=== PATIENT | male | born 1960 | race Caucasian/White ===

== ENCOUNTER 2017-06-14 08:17 | Emergency (ER) | payer BC ==
[~2017-06-14] VITALS: Ht 172.7 cm; Wt 136.1 kg
--- OUTSIDE RECORDS SUMMARY | ~2017-06-14 | XMS | Clinical Summary ---
Demographics + + + | Address | [address] | | | [place] [address] | + + + | Home Phone | | + + + | Preferred Language | Unknown | + + + | Marital Status | Unknown | + + + | Jehovah'S Witness Affiliation | Unknown | + + + | Race | Unknown | + + + | Ethnic Group | Unknown | + + + Author + + + | Author | [facility] | + + + | Organization | [facility] | + + + | Address | Unknown | + + + | Phone | Unavailable | + + + Support + + +---------+ + | Name | Relationship | Address | Phone | + + +---------+ + | Sonali Sweet | ECON | Unknown | | + + +---------+ + Care Team Providers + +------+ + | Care Air Compressor Engineer Name | Role | Phone | + +------+ + | Joy Saunders PA-C | PP | | + +------+ + Allergies No Known Allergies Current Medications + + +--------+---------+------+------+-------+ | Prescription | Sig. | Disp. | Refills | Star | End | Statu | | | | | | t | Date | s | | | | | | Date | | | + + +--------+---------+------+------+-------+ | aspirin 81 MG | Take 81 mg by mouth | | | | | Activ | | tablet | daily. | | | | | e | + + +--------+---------+------+------+-------+ | | Take 1 tablet by | | | | | Activ | | olmesartan-hydrochlo | mouth daily. | | | | | e | | rothiazide (BENICAR | | | | | | | | HCT) 40-25 MG per | | | | | | | | tablet | | | | | | | + + +--------+---------+------+------+-------+ | ibuprofen (ADVIL) | Take 200 mg by mouth | | | | | Activ | | 200 MG tablet | every 6 (six) hours | | | | | e | | | as needed for Pain | | | | | | | | (Take 4 tablets by | | | | | | | | mouth). | | | | | | + + +--------+---------+------+------+-------+ | ferrous sulfate, | Take 65 mg of iron | | | | | Activ | | 65 FE, 324 (65 FE) | by mouth daily with | | | | | e | | MG EC tablet | breakfast. | | | | | | + + +--------+---------+------+------+-------+ | furosemide (LASIX) | Take 40 mg by mouth | | | | | Activ | | 40 MG tablet | daily. | | | | | e | + + +--------+---------+------+------+-------+ | fish oil omega-3 | Take 1 g by mouth | | | | | Activ | | fatty acids 1000 MG | daily. | | | | | e | | capsule | | | | | | | + + +--------+---------+------+------+-------+ | Multiple | Take 1 tablet by | | | | | Activ | | Vitamins-Minerals | mouth daily. | | | | | e | | (MULTIVITAMIN WITH | | | | | | | | MINERALS) tablet | | | | | | | + + +--------+---------+------+------+-------+ | sodium | Apply 473 mLs | 1 | 0 | 03/1 | | Activ | | hypochlorite | topically continuous | Bottle | | / | | e | | (DAKINS, 02/23 | prn. | | | 16 | | | | STRENGTH,) 0.125 % | | | | | | | | topical | | | | | | | | solutionIndications: | | | | | | | | Non-pressure | | | | | | | | chronic ulcer of | | | | | | | | right ankle, limited | | | | | | | | to breakdown of | | | | | | | | skin (HCC) | | | | | | | + + +--------+---------+------+------+-------+ | sildenafil | Take 1 tablet by | 50 | 11 | 06/2 | 06/2 | Activ | | (REVATIO) 20 MG | mouth as needed. May | tablet | | 2/20 | 2/20 | e | | tablet | take up to 100 mg | | | 17 | 18 | | | | as needed | | | | | | + + +--------+---------+------+------+-------+ | finasteride | Take 1 tablet by | 90 | 4 | 08/0 | 08/0 | Activ | | (PROSCAR) 5 MG | mouth daily. 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) | 05/06/2015 | + + + | Venous insufficiency | 05/06/2015 | + + + | Venous ulcer of right leg | 05/06/2015 | + + + Family History + + +------+ + | Medical History | Relation | Name | Comments | + + +------+ + | Colon polyps | Father | | | + + +------+ + | Diabetes type I | Father | | | + + +------+ + | Heart defect | Father | | | + + +------+ + + +------+ + + | Relation | Name | Status | Comments | + +------+ + + | Father | | | | + +------+ + + | Maternal Grandfather | | | | + +------+ + + | Maternal Grandmother | | | | + +------+ + + | Paternal Grandfather | | | | + +------+ + + | Paternal Grandmother | | | | + +------+ + + Social History + +-------+ +--------+------+ | Tobacco Use | Types | Packs/Day | Years | Date | | | | | Used | | + +-------+ +--------+------+ | Never Smoker | | | | | + +-------+ +--------+------+ + +---+---+---+ | Smokeless Tobacco: | | | | | Never Used | | | | + +---+---+---+ + + +---------+ + | Alcohol Use | Drinks/We | oz/Week | Comments | | | ek | | | + + +---------+ + | No | | | | + + +---------+ + + + + | Sex Assigned at | Date Recorded | | | | + + + | Not on file | | + + + Last Filed Vital Signs + + + + | Vital Sign | Reading | Time Taken | + + + + | Blood Pressure | 135/81 | 07/01/2015 10:43 AM PDT | + + + + | Pulse | 56 | 09/21/2016 3:09 PM PDT | + + + + | Temperature | 36.7 C (98 F) | 07/01/2015 10:43 AM PDT | + + + + | Respiratory Rate | 16 | 08/11/2016 9:44 AM PDT | + + + + | Oxygen Saturation | 97% | 09/21/2016 3:09 PM PDT | + + + + | Inhaled Oxygen | - | - | | Concentration | | | + + + + | Weight | 136.3 kg (300 lb 8 | 09/21/2016 3:09 PM PDT | | | oz) | | + + + + | Height | 172.7 cm (5' 8") | 09/21/2016 3:09 PM PDT | + + + + | Body Mass Index | 45.69 | 09/21/2016 3:09 PM PDT | + + + + Plan of Treatment + + + + + | Health Maintenance | Due Date | Last Done | Comments | + + + + + | Vaccine: | | | | | Dtap/Tdap/Td (1 - | 8 | | | | Tdap) | | | | + + + + + | Colon Cancer | | | | | Screening | 9 | | | | (Colonoscopy) | | | | + + + + + | Vaccine: Influenza | | | | | (Season Ended) | 8 | | | + + + + + Results Not on filefrom Last 3 Months Insurance +-------+--------+ +------+-------+---------+ | Payer | Benefi | Subscriber | Type | Phone | Address | | | t Plan | ID | | | | | | / | | | | | | | Group | | | | | +-------+--------+ +------+-------+---------+ | AETNA | AETNA | xxxxxxxx | | | | | | - RACHEL | | | | | +-------+--------+ +------+-------+---------+ + +--------+ +--------+ + + | Guarantor Name | Accoun | Relation to | Date | Phone | Billing Address | | | t Type | Patient | of | | | | | | | | | | + +--------+ +--------+ + + | NORMA CASTILLO | Person | Self [birth year] | Home: | [address] | | | al/Fam | | 1961 | [phone] | [address] [place] | | | [place] | | | [phone] | + +--------+ +--------+ + +
--- OUTSIDE RECORDS SUMMARY | ~2017-06-14 | XMS | Clinical Summary ---
Demographics + + + | Address | [address] | | | [place] [address] | + + + | Home Phone | | + + + | Preferred Language | Unknown | + + + | Marital Status | | + + + | Shinto Affiliation | Unknown | + + + | Race | Unknown | + + + | Ethnic Group | Unknown | + + + Author + + + | Author | [facility] | | | and [place] | + + + | Organization | [facility] | | | and [place] | + + + | Address | Unknown | + + + | Phone | Unavailable | + + + Support + + + + + | Name | Relationship | Address | Phone | + + + + + | Sonali Sweet | ECON | [address] | | | | | [place] | | + + + + + Care Team Providers + +------+ + | Care Regional Education Coordinator Name | Role | Phone | + +------+ + | Joy Saunders | PP | | + +------+ + Allergies No Known Allergies Current Medications + + +-------+---------+------+------+-------+ | Prescription | Sig. | Disp. | Refills | Star | End | Statu | | | | | | t | Date | s | | | | | | Date | | | + + +-------+---------+------+------+-------+ | | Take 1 tablet by | | | | | Activ | | olmesartan-hydrochlo | mouth Daily. | | | | | e | | rothiazide (BENICAR | | | | | | | | HCT) 40-25 MG per | | | | | | | | tablet | | | | | | | + + +-------+---------+------+------+-------+ | furosemide (LASIX) | Take 40 mg by mouth | | | | | Activ | | 40 mg tablet | 2 times daily. | | | | | e | + + +-------+---------+------+------+-------+ | ibuprofen (ADVIL, | Take 200 mg by mouth | | | | | Activ | | MOTRIN) 200 mg | every 6 hours as | | | | | e | | tablet | needed. | | | | | | + + +-------+---------+------+------+-------+ | aspirin 81 mg EC | Take 81 mg by mouth | | | | | Activ | | tablet | Daily. | | | | | e | + + +-------+---------+------+------+-------+ | Multiple | Take 1 tablet by | | | | | Activ | | Vitamins-Minerals | mouth Daily. | | | | | e | | (MULTIVITAL PO) | | | | | | | + + +-------+---------+------+------+-------+ | mupirocin | Apply topically 2 | | | | | Activ | | (BACTROBAN) 2% | times daily. 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 | + + + | Post-phlebitic syndrome | 09/10/2013 | + + + | Ulcer of ankle (HCC) | 09/10/2013 | + + + Family History + + +------+ + | Medical History | Relation | Name | Comments | + + +------+ + | Diabetes | Father | | | + + +------+ + | Emphysema | Father | | | + + +------+ + + +------+--------+ + | Relation | Name | Status | Comments | + +------+--------+ + | Father | | | | + +------+--------+ + Social History + +-------+ +--------+------+ | [...] + + + | Blood Pressure | 128/62 | 09/10/2013 1400 PDT | + + + + | Pulse | 57 | 09/10/2013 1400 PDT | + + + + | Temperature | 36.2 C (97.2 F) | 09/10/2013 1400 PDT | + + + + | Respiratory Rate | 17 | 09/10/2013 1400 PDT | + + + + | Oxygen Saturation | 98% | 09/10/2013 1400 PDT | + + + + | Inhaled Oxygen | - | - | | Concentration | | | + + + + | Weight | 124.3 kg (274 lb) | 09/10/2013 1400 PDT | + + + + | Height | 175.3 cm (5' 9") | 09/10/2013 1400 PDT | + + + + | Body Mass Index | 40.46 | 09/10/2013 1400 PDT | + + + + Plan of Treatment + + + + + | Health Maintenance | Due Date | Last Done | Comments | + + + + + | Hepatitis C | | | | | Screening | 9 | | | + + + + + | Vaccine: | | | | | Dtap/Tdap/Td (1 - | 8 | | | | Tdap) | | | | + + + + + | COLON CANCER | | | | | SCREENING | 9 | | | | (COLONOSCOPY EVERY | | | | | 10 YEARS 50-75) | | | | + + + + + | Vaccine: Influenza | | | | | (Season Ended) | 8 | | | + + + + + Results Not on filefrom Last 3 Months Insurance + +--------+ +------+ +---------+ | Payer | Benefi | Subscriber | Type | Phone | Address | | | t Plan | ID | | | | | | / | | | | | | | Group | | | | | + +--------+ +------+ +---------+ | HEALTHCOMP | HEALTH | xxxxxxxxx | PPO | [phone] | | | COMP | | | [phone] | | | | FIRST | | | | | | | CHOICE | | | | | + +--------+ +------+ +---------+ + +--------+ +--------+ + + | Guarantor Name | Accoun | Relation to | Date | Phone | Billing Address | | | t Type | Patient | of | | | | | | | | | | + +--------+ +--------+ + + | NORMA CASTILLO | Person | Self [birth year] | Work: | [address] | | | al/Fam | | 1960 | [phone] [address] [place] | | | [place] | | | [phone]: | [place] [address] | | | | | | | | | | | | [phone] | | | | | | | [phone] | | + +--------+ +--------+ + +
--- OUTSIDE RECORDS SUMMARY | ~2017-06-14 | XMS | Clinical Summary ---
Demographics + + + | Address | [address] | | | [place] [address] | + + + | Home Phone | | + + + | Preferred Language | Unknown | + + + | Marital Status | | + + + | Restorationist Affiliation | Unknown | + + + | Race | Unknown | + + + | Ethnic Group | Unknown | + + + Author + + + | Author | [facility] | | | and [place] | + + + | Organization | [facility] | | | and [...] Team Providers + +------+ + | Care Credit Review Manager Name | Role | Phone | + [...] | HEALTH | xxxxxxxxx | PPO | [phone] | | | COMP | | [...] | Self | [birth year] | Work: | [address] | | | al/Fam | | 1960 | [phone] | [address] [place] | | | [address] | | | [phone]: | [place] [address] | | | | | | | | | | | | | [phone] | | | | | | | [phone] | | + +--------+ +--------+ + +
--- OUTSIDE RECORDS SUMMARY | ~2017-06-14 | XMS | Clinical Summary ---
Demographics + + + | Address | [address] | | | [place] [address] | + + + | Home Phone | | + + + | Preferred Language | Unknown | + + + | Marital Status | Unknown | + + + | Bahai Affiliation | Unknown | + + + | Race | Unknown | + + + | Ethnic Group | Unknown | + + + Author + + + | Author | [facility] | + + + | Organization | [facility] | + + + | Address | Unknown | + + + | Phone | Unavailable | + + + Support + + +---------+ + | Name | Relationship | Address | Phone | + + +---------+ + | Sonali Sweet | ECON | Unknown | | + + +---------+ + Care Team Providers + +------+ + | Care Cooling Machine Operator Name | Role | Phone | + [...] | Self | [birth year] | Home: | [address] | | | al/Fam | | 1961 | [phone] | [address] [place] | | | [place] | | | [phone] | [phone] | + +--------+ +--------+ + +
[~2017-06-14 08:17] MED LIST: BENICAR HCT 401 EAC1 PO; LASIX40 MG PO; NORCO 5-325 TA1 EACH PO
[2017-06-14] MEDS ORDERED: FINASTERIDE5 MG PO (08:42)
[2017-06-14] MEDS ORDERED: NORCO 5-325 TA1 EACH PO (09:31)
[2017-06-14] MEDS ORDERED: METHYLPREDNISOLO4 M1 PO (09:31)
== END 2017-06-14 10:15 | disposition home or self-care (01) ==
LOC: ED 08:17
DX: M79.672 Pain in left foot (principal); I10 Essential (primary) hypertension; E66.9 Obesity, unspecified; Z79.899 Other long term (current) drug therapy
CPT/HCPCS: 73630; 99283

== ENCOUNTER 2020-07-23 14:27 | Observation (INO) | payer BC ==
[~2020-07-23] VITALS: Ht 172.7 cm; Wt 125.8 kg
[~2020-07-23 14:27] MED LIST changes: +FINASTERIDE5 MG PO; +METHYLPREDNISOLO4 M1 PO
[2020-07-23] MEDS ORDERED: POTASSIUM CHLO20 ME1 PO (14:41)
[2020-07-23] MEDS ORDERED: FUROSEMIDE40 MG PO (14:41)
[2020-07-23] MEDS ORDERED: OLMESARTAN-HCT1 EAC2 PO (14:41)
[2020-07-23] MEDS ORDERED: TERBINAFINE HC250 MG PO (14:42)
--- NOTE | 2020-07-23 19:00 | NUR ---
PT ARRIVED IN CCU AT 1833. V/S WDL WITH OCCASIONAL KEO HR IN THE MID 40'S. PT IS NAUSEADED AND VERY DIZZY. RIGHT PUPIL IS 1MM AND REACTIVE, LEFT PUPIL IS MORE LIKE 2MM AND REACTIVE. ONLY THING LEFT TO DO IS ADMIN. ASSESSMENT.
--- NOTE | 2020-07-23 19:30 | NUR ---
SHIFT REPORT RECEIVED. PATIENT RESTING IN BED WITH EYES CLOSED. VS STABLE.
--- NOTE | 2020-07-23 21:00 | NUR ---
PATIENT WOKE EASILY TO RN VOICE. REPORTS BEING DIZZY WITH ANY MOVMENT, STATES "IT'S LIKE EVERYTHING IS MOVING AROUND ME". REPORTS MILD NAUSEA AND A HEADACHE. PRN ZOFRAN AND TYLENOL PROVIDED. IV SITE WNL, FLUIDS STARTED PER ORDER. PATIENT VOIDED 500 MLS CLEAR YELLOW URINE. TOLERATING ROOM AIR. NEURO ASSESSMENT FINDS EXTREMITITES TO BE WNL. PATIENT IS ORIENTED. ONLY COMPLAINTS ARE THE DIZZINESS AND SOME TINGLING ON THE RIGHT SIDE OF HIS FACE WHICH HE IS CURRENTLY LAYING ON. HR 40'S AND REGULAR.
--- NOTE | 2020-07-23 22:30 | NUR ---
PATIENT REPORTS ONGOING DIZZINESS, NOT BETTER OR WORSE. PATIENT HAS BEEN RESTING WITH EYES CLOSED IN ATTEMPT TO REDUCE THE SEVERITY. PATIENT DENIES ANY NEEDS. CALL LIGHT IN REACH.
--- NOTE | 2020-07-24 01:00 | NUR ---
PATIENT RESTING IN BED. OPENS EYES WHEN RN ENTERS ROOM. BP TAKEN ON UPPER ARM TO VERIFY WRIST CUFF ACCURACY WHICH THE READING ARE CLOSE. PATIENT BECOMES INCREASING NAUSEOUS WITH MOVEMENT AND HAS 100 MLS CLEAR YELLOW EMESIS. PATIENT REPORTS NAUSEA IS MILD AND CONSTANT UNTIL HE MOVES. IV FLUIDS INFUSING PER ORDER, SITE WNL. PATIENT BACK TO RESTING WITH EYES CLOSED. LAYIING ON RIGHT SIDE. CALL LIGHT IN REACH.
--- NOTE | 2020-07-24 01:30 | NUR ---
patient continues to have mild to moderate nausea with occational emesis. discussed with md. orders received and verified via repeat back.
--- NOTE | 2020-07-24 02:03 | NUR ---
PT HAD 250ML YELLOW EMESIS, PRN PHENERGAN GIVEN AND SCOPALAMINE PATCH PLACED BEHIND LEFT EAR, EDUCATION PROVIDED AND PT STATES UNDERSTANDING. NEW EMESIS BAG PROVIDED. PT DENIES FURTHER NEEDS.
--- NOTE | 2020-07-24 03:30 | NUR ---
PATIENT APPEARS TO BE SLEEPING SOUNDLY. VS STABLE.
--- NOTE | 2020-07-24 04:54 | NUR ---
PATIENT APPEARS TO BE SLEEPING SOUNDLY. IV STABLE. IV FLUIDS PER ORDER, SITE WNL. CALL LIGHT IN REACH.
--- NOTE | 2020-07-24 06:31 | NUR ---
patient's in to visit. patient reports some improviment of nausea but continues to increase with any movement. MRI screening done. patient provided with prn zofran.
--- NOTE | 2020-07-24 06:55 | NUR ---
PT OUT OF UNIT AT THIS TIME FOR MRI.
--- NOTE | 2020-07-24 07:25 | NUR ---
pt back to room from MRI. pt alert and oriented x4.
--- NOTE | 2020-07-24 08:14 | NUR ---
denies from imaging is in room ECHO in progress. pt reports nausea with movement and is given 12.5 mg iv phenergan. pt is alert and oriented x4. pt is cooperative and polite. able to repositon self easily in the bed. iv site is wnl, flushes easily.
--- NOTE | 2020-07-24 08:45 | NUR ---
PT IV SITES ARE BOTH INTACT, NO REDNESS OR SWELLING NOTED, PT DENIES PAIN AT EITHER SITE. PT ABLE TO TAKE PO PILLS EASILY. PT REPORTS NAUSEA IS "OK" WHEN HE DOES NOT MOVE, HOWEVER REPORTS IMPROVEMENT SINCE IV MEDS. CALL LIGHT IS WITHIN REACH. VITALS ARE WNL. PT DENIES ANYOTHER NEEDS AT THIS TIME.
[2020-07-24] MEDS ORDERED: SILDENAFIL20 MG PO (10:03)
--- NOTE | 2020-07-24 10:13 | NUR ---
PT AWAKE AND ALERT X4, SITTING UP AT THE SIDE OF THE BED WORKING WITH OCCUPATIONAL THERAPY. PT BROUGHT FRESH ICE WATER AND A 7-UP.
--- NOTE | 2020-07-24 11:21 | NUR ---
PT REPORTS 6/10 HEADACHE AND NECK "STIFF AND SORE". PT ALSO REPORTS CONTINUED NAUSEA. PO TYLENOL AND OXYCODONE GIVEN FOR PAIN. IV ZOFRAN GIVEN FOR NAUSEA. FLEXERIL GIVEN FOR MUSCLE TENSION IN NECK. PT ABLE TO BRIDGET SIPS OF WATER AND 7-UP.
--- NOTE | 2020-07-24 14:13 | NUR ---
PT ABLE TO TAKE PO MEDS EASILY WITH WATER. PT ABLE TO BRIDGET SOME SODA WITH CAFFEEN AND REPORTS "I THINK IT MIGHT HAVE HELPED". VITALS REMAIN STABLE AT THIS TIME, HR NOTED TO REMAIN SINUS KEO. PT USES CALL LIGHT APPRORIATELY.
--- NOTE | 2020-07-24 15:33 | NUR ---
POTASSIUM RIDER STARTED IN PT LEFT IV SITE. SITE IS INTACT, FLUSHES EASILY, PT DENIES PAIN AT THIS SITE. PT SLEEPING LIGHTLY, ROUSES EASILY, AND IS APPROPRIATE. PT DENIES ANY NEEDS AT THIS TIME. HR NOTED TO REMAIN SINUS KEO.
--- NOTE | 2020-07-24 16:57 | NUR ---
PT GIVEN 12.5 MG IV PHENERGAN FOR C/O NAUSEA. IV SITE IS INTACT, FLUSHES EASILY, NO REDNESS OR SWELLING NOTED.
--- NOTE | 2020-07-24 18:20 | NUR ---
PT GIVEN PO TYLENOL AND OXYCODONE FOR 7/10 HEADACHE. PT ALSO GIVEN 4 MG IV ZOFRAN FOR NAUSEA.
--- NOTE | 2020-07-24 18:57 | NUR ---
PT ONE PERSON ASSIST UP TO THE CHAIR WITH USING HIS CANE. PT BRIDGET ACTIVITY WELL, REPORTS THAT DIZZINESS IS TOLLERABLE. PT ABLE TO WASH FACE, HANDS, AND LORI AREA ON HIS OWN WHEN GIVEN SUPPLIES. PT GOWN AND ALL LINENS CHANGED. PT BRUSHED OWN HAIR. IS ALSO BRIDGET CLEAR LIQUID FOR MEAL. CALL LIGHT WITHIN REACH. PT VITALS ARE STABLE, NOTED PT STILL SINUS KEO.
--- NOTE | 2020-07-24 19:11 | EKG ---
[facility] [address] [place] [address] Signed Sinus bradycardia Low voltage QRS Incomplete left bundle branch block Borderline ECG When compared with ECG of 21-AUG-2017 08:58, No significant change was found Confirmed by BAO BAUTISTA MD ([id number]) on 07/24/2020 7:11:37 PM Electronically Signed By: BAO BAUTISTA MD 07/24/201910 PATIENT NAME: JONATHANNORMA CLARIBEL Electrocardiogram DATE OF : 56 PHYSICIAN: BAO BAUTISTA MD REPORT #: [id number] REPORT IS CONFIDENTIAL AND NOT TO BE RELEASED WITHOUT AUTHORIZATION
--- NOTE | 2020-07-24 20:30 | NUR ---
PATIENT TRANSFERED FROM CHAIR TO BED. PATIENT IS VERY UNSTEADY ON HIS FEET AND REPORTS FEELING INCREASINGLY DIZZY WITH MOVEMENT. PATIENT SAFELY IN BED. HAS FINISHED PM CARES. NEW IV SITE ESTABLISHED IN LEFT FORARM, IV FLUIDS CONTINUES PER ORDERS. VS STABLE. HR 44-45, SINUSBRADY. PATIENT REPORTS NAUSEA AND HEADACHE ARE CONSTANT BUT MORE MILD THAN YESTERDAY. REQUEST TO HAVE HIS PRN MEDS CLOSER TO 2200. NO OTHER NEEDS AT THIS TIME.
--- NOTE | 2020-07-24 22:00 | NUR ---
DISCUSSED PATIENT'S I&O'S WITH JES BENDER TO DC THE IV FLUIDS RECEIVED. PATIENT WILL BE SL WHEN THIS DOSE OF POTASSIUM IS INFUSED.
--- NOTE | 2020-07-25 02:18 | NUR ---
PATIENT SL AT 0200. PATIENT APPEARS TO BE SLEEPING SOUNDLY. HR 40, SINUSBRADY.
--- NOTE | 2020-07-25 04:00 | NUR ---
PATIENT SLEEPING SOUNDLY. HR 40, SINUS KEO. CALL LIGHT IN REACH.
--- NOTE | 2020-07-25 06:00 | NUR ---
PATIENT REPORTS FEELING IMPROVED THIS MORNING. MINIMAL DIZZINESS. NO NAUSEA OR PAIN. INTERESTED IN ORDERING BREAKFAST. VS STABLE. HR 48 WITH ACTIVITY.
--- NOTE | 2020-07-25 07:30 | NUR ---
THIS RN RECVEIVED REPORT FROM DEYANIRA RIVERA. PT SITTING UP IN CHAIR AT THIS TIME
--- NOTE | 2020-07-25 08:45 | NUR ---
THIS RN IN PTS ROOM TO DO PTS ASSESSMENT AND GIVE MORNING MEDS. PT REPORTS THAT HE IS STILL HAVING NUMBNESS AND WEAKNESS ON HIS RIGHT SIDE. THIS RN PERFORMED A FULL NEURO ASSESSMENT AND THIS ONLY SHOWED THAT PT HAD A SLIGHT WEAKER PEDIGREE RESEARCHER ON THE RIGHT HAND AND SOME NUMBNESS ON HIS FACE BUT ALL OTHER SYMMETRY IS WNL
--- NOTE | 2020-07-25 09:05 | NUR ---
THIS RN PROVIDED PT WITH 650 MG OF TYLENOL FOR A HEADACHE 08/29
[2020-07-25] MEDS ORDERED: KLOR-CON 1010 MEQ PO (10:12)
[2020-07-25] MEDS ORDERED: ASPIRIN325 MG PO (10:12)
[2020-07-25] MEDS ORDERED: OXYCODONE HCL5 MG PO (10:12)
--- NOTE | 2020-07-25 12:20 | NUR ---
THIS RN IN PTS ROOM TO CHECK TO SEE WHAT PTS DESCION WAS ON THE WALKER. PT STATES THAT HE IS CONCERNED ABOUT HIS SYMPTOMS AND HOW THEY RELATE TO A STROKE. THIS RN STATED THAT PTS IMMAGINING STUDIES SHOW THAT EVERYTHING CAME BACK WNL. PT STATES THAT HE IS FRUSTRATED ABOUT THE HEADACHE, WEAKNESS, AND NUMBNESS. THIS RN VALIDATED PTS FEELS STATING THAT IT IS NORMAL TO BE FRUSTRATED WITH THESE SYMPTOMS AND THAT IS WHY HE NEEDS TO FOLLOW UP WITH THE STUDY DIRECTOR. THIS RN DID MENTION TO THAT PT HAS CONCERNS AND STATED THAT STUDIES SHOW THAT THIS IS NOT RELATED TO STROKE AND THAT WILL SEE HIM OUTPT.
== END 2020-07-25 14:25 | disposition home or self-care (01) ==
LOC: ED 14:27 → CCU 14:28 → MS 07-25 06:50
PROVIDERS: ADMIT Internal Medicine; ATTEND Internal Medicine
DX: R51.9 Headache, unspecified (principal); R00.1 Bradycardia, unspecified; I10 Essential (primary) hypertension; M25.551 Pain in right hip; Z20.822 Contact with and (suspected) exposure to COVID-19
CPT/HCPCS: 36415; 70450; 70496; 70498; 70551; 71045; 80048; 80053; 83735; 84484; 85025; 85610; 85730; 93005; 93010; 93306; 97163; 97165; 99285-25; C9803; G0378; J0780; J1200; J1650; J2405; J2550; J2765; J3475; J3480; J7030; J7060; Q9967; U0003